=== PATIENT | female | born 1990 | race Caucasian/White ===

== ENCOUNTER 2018-01-04 22:09 | Inpatient (IN) | payer OTHER ==
[2018-01-04 22:50] VITALS: BMI 24.0
[2018-01-04 23:29] LABS: BASO % 0.3 % (0.0-2.0); EOS % 0.1 % (0.0-4.0); HEMOGLOBIN 11.8 g/dL (12.0-16.0); LYMPH % 7.5 % (20.0-40.0); MEAN CELL VOLUME 79.3 fl (81.0-99.0); MEAN CORPUSCULAR HEMOGLOBIN 26.4 pg (27.0-31.0); MEAN CORPUSCULAR HGB CONC 33.3 g/dL (33.0-37.0); MEAN PLATELET VOLUME 9.4 fl (7.2-11.7); MONO # 0.7 K/uL (0.0-0.8); NEUT # 11.6 K/uL (1.8-7.0); NEUT % 87.1 % (50.0-75.0); NRBC % 0.3 % (0.0-0.0); PLATELET COUNT 189 K/uL (130-400); RBC 4.47 Mil/uL (3.80-5.20); RED CELL DISTRIBUTION WIDTH 16.7 % (11.5-14.5); WHITE BLOOD COUNT 13.4 K/uL (4.8-10.8)
[2018-01-04] MEDS: Lactated Ringer's 1,000 ML IV SCH (23:32)
[2018-01-05] MEDS ORDERED: Fentanyl/Bupivacaine HCl 250 ML EPI ONE (00:35)
[2018-01-05] MEDS: Lactated Ringer's 1,000 ML IV SCH ×3 (00:35→06:00)
[2018-01-05] MEDS ORDERED: Bupivacaine HCl 0.25% PF (10 ml) Inj ONE (00:38)
[2018-01-05] MEDS ORDERED: Oxytocin 30 units/LR 500ML 30 U/500 ML BAG IV ONE ×2 (00:53→06:10)
[2018-01-05 03:14] LABS: BASOPHIL 1 % (0-2); LYMPHOCYTE 8 % (20-50); MONOCYTE 4 % (0-10); NEUTROPHIL 87 % (42-75); PLATELET ESTIMATE NORMAL (NORMAL); TOTAL CELLS COUNTED 100
--- NOTE | 2018-01-05 06:16 | OBHP ---
Datetime: 01/05/2018 05:58 FHR - Baseline A Provider: 150s Membranes, Provider: Bulging NICHD Variability Prov Fetus A: Moderate 6-25bpm NICHD Accel Fetus A IP Provider: 15X15 FHR Category Provider Fetus A: Category I NICHD Decel Fetus A IP Provider: None Dilatation, Provider: 8-9 Effacement, Provider: 100 Station, Provider: -1 Datetime: 01/04/2018 22:59 IP Adm Impression: Term, intrauterine IP Admit Plan: Admit to unit; Initiate labor protocol Admit Comment, IP Provider: 27 yo at 39.5 weeks GA, JD on 01/06/18 based on [address] [place], [place] [id number] U S, not c/w LMP presents to [facility] w/ c/o ctx q5 min since 4 pm this evening. Pt reports she went to [facility] this morning when her ctx was every 10 min, she was 2 cm dilated and was sent h ome. Pt reports ctx last for a min and it's more intense and strong. Pt reports passing thick mucus p lug, but denies LOF. +FM. Pt is GBS unknow. Pt has poor care. Last visit to [place] was on 10/2017. PNC: [place], last visit in 10/2017 PNL: No third trimester labs available. GBS unknown, rpr neg, hiv neg, rubella immune, hbsag unkno wn, 1hr GCT is 147, as per pt 3 hr GCT was WNL US: No record available, as per pt, she had last US at 27 weeks GA and it was normal. obhx: x 1 in 2006, full term, no complication, baby's wt: 5lbs 10 oz gynhx: pap neg, denies hx STI PMHX: Denies pshx: denies social hx: denies smoking cigarettes, drinking EtOH or using drugs. family hx: hx CAD in maternal grandfather medications: PNV Allergies: NKDA Assessment: 27 yo IUP@39.5 weeks GA has painful contraction. Plan: Admit to L_D Continunous heart tracing IVFs Hx poor prental care (last visit 10/2017) Labs: CBC, Type and screen, hiv, rpr, hebsag GBS uknown: offered GBS prophylaxis to patient, pt declines Pain management: pt desires epidural [place], pgy-1 Case d/w on-call OB Hospitalist Dr. Ramirez OB Hospitalist on-call. with PGY1, I saw ans examined this patient...Early labor with painful CTX - will admit and observe labor progress...discussed labor, pain management delivery and c are...check accucheck Extremities - PN: Normal Abdomen - PN: Normal Back - PN: Normal Lungs - PN: Normal Heart - PN: Normal Neurologic - PN: Normal HEENT - PN: Normal General - PN: Normal Contraction Comments Provider: q4min Comments, ACOG Physical Exam: Bedside US: cephalic presentation SVE: /-1 Pool Provider: Negative IP Hx Assessment: The History has been Reviewed and it's incomplete EGA AdmitDate IP: 39.5 Vital Signs Provider: Reviewed IP Chief Complaint: Uterine contractions; Maternal discomfort Genitourinary Exam: Normal
--- NOTE | 2018-01-05 06:16 | OBPN ---
Datetime: 01/05/2018 05:58 IP Progress Impression Other: slow progression Membranes, Provider: Bulging FHR - Baseline A Provider: 150s NICHD Accel Fetus A IP Provider: 15X15 FHR Category Provider Fetus A: Category I NICHD Variability Prov Fetus A: Moderate 6-25bpm Dilatation, Provider: 8-9 Effacement, Provider: 100 Station, Provider: -1 NICHD Decel Fetus A IP Provider: None Datetime: 01/05/2018 04:00 IP Progress Impression: Normal progression of labor IP Progress Plan: Continue present management; Anticipate Vaginal Delivery IP Progress Note Comment: SVE: /-2 OB hospitaliston-call...Pt rec'd epidural. She feels fine. Datetime: 01/04/2018 22:59 Pool Provider: Negative Contraction Comments Provider: q4min Vital Signs Provider: Reviewed
--- NOTE | 2018-01-05 06:34 | OBPN ---
Datetime: 01/05/2018 05:58 IP Progress Note Comment: SVE: /-1 Pt was 7-8 cm 2 hours ago, slowing progressing Will start Pitocin to augment the labor per protocol Membrance intact and bulging findings d/w patient and are in agreement with the plan. [place],pgy-1 Case d/w on-call OB Hospitalist Dr. Ramirez OB Hospitaliston-call agree with above note...start Pitocin augmentatoin
--- NOTE | 2018-01-05 07:42 | OBPN ---
Datetime: 01/05/2018 07:20 IP Progress Impression: Normal progression of labor; Reassuring heart rate IP Informed Consent Obtain: Vaginal Delivery; Risks, Benefits and Alternatives Discussed IP Procedures: Artificial ROM IP Progress Plan: Continue present management; Augmentation; Anticipate Vaginal Delivery Pool Provider: Positive Membranes, Provider: Ruptured Amniotic Fluid Color, Provider: Clear Contraction Comments Provider: 2-5m FHR - Baseline A Provider: 150 Presentation-Admit: Vertex IP Progress Note Comment: Since 6am, she was 9cm...Pitocin at 4miu/h (just increased 7am)...Discussi on with pt about augmentatoin...AROM clear fluid. NICHD Accel Fetus A IP Provider: 15X15 FHR Category Provider Fetus A: Category I NICHD Variability Prov Fetus A: Moderate 6-25bpm Dilatation, Provider: 9 Effacement, Provider: 100 Station, Provider: 0
[2018-01-05] MEDS ORDERED: Lidocaine 1% Inj (20ml) ONE (08:22)
[2018-01-05 09:37] VITALS: O2SAT 100
--- NOTE | 2018-01-05 12:35 | OBDS ---
DELIVERY PERSONNEL Delivery Doctor: Kenneth Kwong MD Lane Marker Installer: Vanesa Noel RN Anesthesiologist: Owen Shaw MD Resident: CAROLINA Tse MATERNAL INFORMATION Delivery Anesthesia: Epidural Medications in Delivery: Pitocin 30 mu/500 mL Estimated Blood Loss (ml): 150 Placenta Cultured: No Maternal Complications: None Provider Comments: Normal spontaneous vaginal delivery of live female infant, over intact perineum w ith epidural anesthesia. Babygirl was bulb suctioned and placed on mother's chest for skin skin stimu lation. Cord was clamped and cut. Spontaneous delivery of placenta and no laceration appreciated. EBL 150cc. 9/9. Patient was seen with the resident I agree with the note. I was present in the delivery and assite d the resident. LABOR SUMMARY EDC: 01/06/2018 00:00 No. Babies in Womb: 1 Attempted: No (Annotations: Data stored by [facility] on behalf of user) Labor Anesthesia: Epidural LABOR INFORMATION Reason for Induction: Not Applicable Onset of Labor: 01/05/2018 04:02 Complete Dilatation: 01/05/2018 08:15 Oxytocin: Augmentation Group B Beta Strep: Not Done Antibiotics # of Doses: 0 Antibiotics Time of Last Dose: n/a Steroids Given: None Reason Steroids Not Administered: Not Applicable MEMBRANES Membranes Rupture Method: Artificial Rupture of Membranes: 01/05/2018 07:15 Length of Rupture (hrs): 1.53 Amniotic Fluid Color: Clear Amniotic Fluid Amount: Moderate Amniotic Fluid Odor: None STAGES OF LABOR Stage 1 hrs: 4 Stage 1 min: 13 Stage 2 hrs: 0 Stage 2 min: 32 Stage 3 hrs: 0 Stage 3 min: 8 Total Time in Labor hrs: 4 Total Time in Labor min: 53 VAGINAL DELIVERY Episiotomy: None Laceration Extension: N/A Laceration Type: None Laceration Repair: Not Applicable Initial Vag Sponge Count: 5 Final Vag Sponge Count: 5 Initial Vag Sharps Count: 0 Final Vag Sharps Count: 0 Sponge Count Correct: Yes Sharps Count Correct: N/A BABY A INFORMATION Delivery Date/Time: 01/05/2018 08:47 Method of Delivery: Vaginal Born in Route : No : N/A Forceps: N/A Vacuum Extraction: N/A Shoulder Dystocia : No SHOULDER DYSTOCIA BABY A Delivery Date/Time: 01/05/2018 08:47 PRESENTATION/POSITION BABY A Presentation: Cephalic Cephalic Presentation: Vertex Breech Presentation: N/A PLACENTA INFORMATION BABY A Placenta Delivery Time : 01/05/2018 08:55 Placenta Method of Delivery: Spontaneous Placenta Status: Delivered SCORES BABY A Heart Rate 1 min: >100 bpm Resp Effort 1 min: Good Cry Reflex Irritability 1 min: Cough or Sneeze or Pulls Away Muscle Tone 1 min: Active Motion Color 1 min: Body [place], Extremities Blue Resuscitation Effort 1 min: N/A SCORE 1 MIN: 9 Heart Rate 5 min: >100 bpm Resp Effort 5 min: Good Cry Reflex Irritability 5 min: Cough or Sneeze or Pulls Away Muscle Tone 5 min: Active Motion Color 5 min: Body [place], Extremities Blue Resuscitation Effort 5 min: N/A SCORE 5 MIN: 9 INFORMATION BABY A Gestational Age at Delivery: 39.6 Gestational Status: Term Infant Outcome : Liveborn Condition : Stable Sex: Female IDENTIFICATION/MEDS BABY A ID Band Number: [id number] WEIGHT/LENGTH BABY A Birthweight (gms): 2895 Weight (lb): 6 Infant Weight (oz): 6 CORD INFORMATION BABY A No. Cord Vessels: 3 Nuchal Cord : N/A Cord Blood Taken: Yes Infant Suction: Mouth; Nose
[2018-01-06 07:17] LABS: HEMOGLOBIN 11.1 g/dL (12.0-16.0); MEAN CELL VOLUME 79.5 fl (81.0-99.0); MEAN CORPUSCULAR HEMOGLOBIN 27.2 pg (27.0-31.0); MEAN CORPUSCULAR HGB CONC 34.2 g/dL (33.0-37.0); RBC 4.08 Mil/uL (3.80-5.20); RED CELL DISTRIBUTION WIDTH 17.2 % (11.5-14.5); WHITE BLOOD COUNT 15.3 K/uL (4.8-10.8)
--- NOTE | 2018-01-06 08:25 | OBPPN ---
Datetime: 01/06/2018 06:24 PP Pain Prov: Within normal limits PP Nausea Prov: Denies PP Flatus Prov: Yes PP BM Prov: Yes PP Heart Prov: Normal PP Lungs Prov: Normal PP Abdomen/Uterus Prov: Normal PP Lochia Prov: Normal PP CVA Tenderness Prov: Normal PP Impression Prov: Normal progression PP Plan Prov: Continue present management PP Progress Note Prov: PPD 1 27 y/o female now on PPD 1 seen and examined at bedside this morning. No overnight events. Reports pain is controlled with pain medications. Pt reports she had BM last night and voiding freel y w/o blood noted. Ambulating well w/o dizziness. Lochia is similar to menses volume. Pt is breastfee ding the baby w/o difficulty. Denies nausea, vomiting, fever, chills, chest pain, dyspnea. Pt reports B/L lower extermity swelling for 2 weeks. Denies any calf pain or pain with ambulation. Physical Exam: General: A_O, resting comfortably in bed, NAD HEENT: oral mucosa moist. Lungs: CTA B/L, no wheezing, rhonchi or rales CVS: RRR, S1, S2 ABD: ND, +BS, firm fundus @ umbilical level. Soft, appropriate TTP. EXT: 1+ b/l pedal edema, +pedal pulse. No calf tenderness. Negative Luiz's sign. No erythema over the lower extermity. Neuro/psych: AAOX3. Assessment: 27 y/o female now doing well on PPD 1 Pedal edema Plan: OOB w/ caution Regular diet Ibuprofen for pain management Senokot and colace for constipation consults for Encourage and ambulation Advised to keep legs elevated when resting to decrease pedal edema. Anticipate discharge tomorrow [place], pgy-1 Case d/w on-call OB hospitalist OB Hospitalist Addendum: PPD 1 s/p , doing well, bottle feeding Continue currrent care Vital Signs Provider PP: Reviewed
[2018-01-07 16:51] VITALS: BP 116/63; PULSE 86; RESP 20; TEMP 97.6
== END 2018-01-07 12:00 | disposition home or self-care (01) | DRG 372 ==
LOC: H.EROB2 22:09 → H.L&D 23:02 → H.OB/GYN 01-05 12:38
PROVIDERS: ADMIT Obstetrics & Gynecology; ATTEND Obstetrics & Gynecology
PROC: 10E0XZZ Delivery of Products of Conception, External Approach (ICD-10-PCS; principal; 2018-01-04)
PROC: 4A0HXCZ Measurement of Products of Conception, Cardiac Rate, External Approach (ICD-10-PCS; 2018-01-04)
DX: O12.04 Gestational edema, complicating childbirth (principal); T17.890A Other foreign object in other parts of respiratory tract causing asphyxiation, initial encounter; Z37.0 Single live birth; Z3A.39 39 weeks gestation of pregnancy; Z82.49 Family history of ischemic heart disease and other diseases of the circulatory system; O9A.22 Injury, poisoning and certain other consequences of external causes complicating childbirth

== ENCOUNTER 2018-11-20 11:32 | Inpatient (IN) | payer MEDICAID, OTHER ==
[2018-11-20 11:55] VITALS: BMI 22.3
[2018-11-20] MEDS ORDERED: ceFAZolin 2 GM in Sodium Chloride 0.9% 100 ML IVPB ONE (12:06)
[2018-11-20] MEDS ORDERED: Lactated Ringer's 1,000 ML IV ONE (12:06)
[2018-11-20] MEDS ORDERED: Oxytocin 30 UNIT 30 UNITS/500 ML BAG IV ONE (12:07)
[2018-11-20] MEDS ORDERED: OXYTOCIN/0.9 % NS 20 UNIT/1,000 ML BAG IV ONE (12:08)
[2018-11-20] MEDS ORDERED: Lactated Ringer's 1,000 ML IV SCH ×3 (12:15→16:47)
[2018-11-20] MEDS ORDERED: Azithromycin 500 MG in Sodium Chloride 0.9% 250 ML IVPB STA (12:22)
[2018-11-20] MEDS ORDERED: Erythromycin 0.5% Ophth Oint 1 APPLIC/3.5 G ONE (12:25)
[2018-11-20 12:26] LABS: BASO # 0.1 K/uL (0.0-0.2); BASO % 0.7 % (0.0-2.0); EOS # 0.2 K/uL (0.0-0.7); EOS % 1.6 % (0.0-4.0); HEMOGLOBIN 10.9 g/dL (12.0-16.0); LYMPH % 17.7 % (20.0-40.0); MEAN CELL VOLUME 74.8 fl (81.0-99.0); MEAN CORPUSCULAR HEMOGLOBIN 24.4 pg (27.0-31.0); MEAN CORPUSCULAR HGB CONC 32.6 g/dL (33.0-37.0); MEAN PLATELET VOLUME 8.6 fl (7.2-11.7); MONO # 0.8 K/uL (0.0-0.8); MONO % 7.6 % (0.0-10.0); NEUT % 72.4 % (50.0-75.0); NRBC % 0.1 % (0.0-0.0); RBC 4.45 Mil/uL (3.80-5.20); RED CELL DISTRIBUTION WIDTH 18.3 % (11.5-14.5)
[2018-11-20] MEDS ORDERED: Morphine 1 mg/ml preservative-free Inj(Duramorph) ONE (12:34)
[2018-11-20] MEDS ORDERED: ePHEDrine 50 mg/ml Inj ONE (12:35)
[2018-11-20] MEDS ORDERED: Phenylephrine 10 mg/ml Inj ONE (12:36)
[2018-11-20 13:18] VITALS: O2SAT 99
[2018-11-20] MEDS ORDERED: Oxycodone/Acetaminophen 5/325 mg Tab PO PRN (13:35)
--- NOTE | 2018-11-20 13:55 | OBDS ---
MATERNAL INFORMATION Provider Comments: Surgeon: Dr. Hartmann Child Adolescent Psychiatrist: Dr. Wolf Pre-op Dx: Term no care, ROM, Breech presentation with advanced dilation Surgery: LTCS Post-op Dx: Same Findings: Live male , misa breech presentation, clear fluid, grossly nml tubes, ovaries, pl acenta, uterus, 5lbs 5 oz, 9/9 Anesthesia: Spinal by Dr. Heart EBL: 600mL UO: Total Input: Complications: None Condition: Stable Pathology: Cord blood, Placenta STAGES OF LABOR Stage 3 hrs: 0 Stage 3 min: 1 BABY A INFORMATION Infant Delivery Date/Time: 11/20/2018 12:54 Method of Delivery: Born in Route : No : N/A SHOULDER DYSTOCIA BABY A Infant Delivery Date/Time: 11/20/2018 12:54 PRESENTATION/POSITION BABY A Presentation: Breech Breech Presentation: Misa PLACENTA INFORMATION BABY A Placenta Delivery Time : 11/20/2018 12:55 Placenta Method of Delivery: Expressed Placenta Status: Delivered SCORES BABY A Heart Rate 1 min: >100 bpm Resp Effort 1 min: Good Cry Reflex Irritability 1 min: Cough or Sneeze or Pulls Away Muscle Tone 1 min: Active Motion Color 1 min: Body [place], Extremities Blue SCORE 1 MIN: 9 Heart Rate 5 min: >100 bpm Resp Effort 5 min: Good Cry Reflex Irritability 5 min: Cough or Sneeze or Pulls Away Muscle Tone 5 min: Active Motion Color 5 min: Body [place], Extremities Blue SCORE 5 MIN: 9 INFORMATION BABY A Gestational Age at Delivery: 38.0 Gestational Status: Term Outcome : Liveborn Infant Condition : Stable Infant Sex: Male WEIGHT/LENGTH BABY A Birthweight (gms): 2548 Weight (lb): 5 Weight (oz): 10 CORD INFORMATION BABY A No. Cord Vessels: 3 Nuchal Cord : N/A Cord Blood Taken: Yes Infant Suction: Mouth
--- NOTE | 2018-11-20 14:18 | OBADHP ---
Datetime: 11/20/2018 13:43 Admit Comment, IP Provider: 28 y/o @ approx. 38 weeks gestation with LMP of 02/2018 no care presented complaining of gush of fluid loss yesterday afternoon at about 1pm followed by continu ed trickling of fluid. She also reported small amount of spotting with bright red blood yesterday aft ernoon along with some contractions that started at 12am this morning, every 45 minutes, -05/03 in na ture that have increased in frequency to every 10 minutes. + FM; last sexual activity was . S he denied any f/c/n/v/d/cp or sob. OBGYNhx: x 2 (11 years ago, F, 5.2lbs; 10 months ago, F, 6.3 lbs) no complications PMH: denies Family hx: denies Sochx: denies tobacco, EtOH or elicit drug use Allergies: denies Meds: prenatals ROS: all 12 points reviewed and are negative. VS: wnl Gen: awake, alert female breathing comfortably Cardio: s1s2, RRR Resp: cta b/l Abd: soft, nontender, BS+ Pelvic: sterile speculum exam- 6cm dilated, breech position (confirmed by ultrasound) Ext: calves nontender, nonedematous A/P: 28 y/o @ approx. 38 weeks gestation with LMP of 02/2018 _ care. -6cm dilated with breech position therefore protocol initiated. -FHR confirmed @ 137 bpm. - labs drawn. -Continue to monitor vital. Patient seen and examined with Dr. Hartmann -Kiya Tolentino, PGY-[address] Hartmann: I have evaluated the patient independently and I agree with the above. Extremities - PN: Normal Abdomen - PN: Normal Lungs - PN: Normal Heart - PN: Normal General - PN: Normal FHR - Baseline A Provider: 160 Pool Provider: Positive Vital Signs Provider: Reviewed; Within Normal Limits IP Chief Complaint: Uterine contractions; Suspected ruptured membranes; Vaginal bleeding NICHD Variability Prov Fetus A: Moderate 6-25bpm NICHD Accel Fetus A IP Provider: 15X15 FHR Category Provider Fetus A: Category I NICHD Decel Fetus A IP Provider: None Dilatation, Provider: 6 EGA AdmitDate IP: 38.0 IP Adm Impression: Term, intrauterine IP Admit Plan: Admit to unit; Initiate Section protocol
[2018-11-20] MEDS ORDERED: DiphenhydrAMINE 50 mg/ml Inj IVP PRN ×2 (14:54→16:47)
[2018-11-20 16:43] LABS: BARBITURATES, UR NEGATIVE (NEGATIVE); BENZODIAZEPINES, UR NEGATIVE (NEGATIVE); OPIATES, UR NEGATIVE (NEGATIVE); PHENCYCLIDINE, UR NEGATIVE (NEGATIVE)
--- NOTE | 2018-11-21 02:26 | OP ---
PROCEDURE DATE: 11/20/2018 PREOPERATIVE DIAGNOSES: 1. Term with no care. 2. Confirmed rupture of membranes. 3. A 6 cm dilated, in active labor. 4. Misa breech presentation confirmed by ultrasound. POSTOPERATIVE DIAGNOSES: 1. Term with no care. 2. Confirmed rupture of membranes. 3. A 6 cm dilated, in active labor. 4. Misa breech presentation confirmed by ultrasound. PROCEDURE: Low-transverse section. SURGEON: Mary Ann Hartmann MD SOCIAL SCIENCES INSTRUCTOR: Dr. Kusum Wolf TYPE OF ANESTHESIA: Spinal. ANESTHESIOLOGIST: Kalpesh Heart MD FINDINGS: Live male infant, 5 pounds 10 ounces. Misa breech presentation. Clear fluid. Grossly normal tubes, ovaries, placenta, and uterus. TOTAL FLUID INPUT: 1500 mL. ESTIMATED BLOOD LOSS: 600 mL. URINE OUTPUT: 50 mL. COMPLICATIONS: None. CONDITION: Stable. PATHOLOGY SPECIMEN: Placenta and cord blood. INDICATION: This is a 28-year-old G4, P2-0-0-2 at roughly 38 plus weeks gestation based on LMP. The patient presented to labor and delivery reporting that she had bleeding and leaking since yesterday and had no care in the . On exam, the patient was confirmed to be grossly ruptured, 6 cm dilated and in active labor. Ultrasound presentation confirmed the patient was misa breech presentation. The patient was urgently admitted to labor and delivery, IV was started, type and cross, CBC, and consented for emergent secondary to malpresentation of the . The patient was advised of the risks and benefits of procedure including risk of bleeding, infection, damage to surrounding organs such as bowel, bladder, ureter, and uterus. The patient verbalized understanding and signed informed consent. DESCRIPTION OF PROCEDURE: The patient was taken to OR. Ancef was given preoperatively as well as azithromycin. IV fluids were running. The patient was given spinal anesthesia without difficulty. The patient prepped and draped in normal sterile fashion, dorsal supine position with a leftward tilt. Pfannenstiel skin incision was made with a scalpel, carried through to the underlying layer of fascia with the scalpel and the Bovie. Fascia incised in the midline and the incision extended laterally with the Bovie. Delisa clamps were used to tent up the inferior aspect of this incision which we dissected off of the underlying pyramidalis muscles with Bovie. In a similar fashion, we tented up the superior aspect of this incision which we dissected off of the underlying rectus abdominis muscles with Bovie. The muscles were bluntly at the midline. We extended the incision superiorly and fairly good visualization of all underlying organs. Peritoneal cavity was entered. The lower uterine segment was visualized and the vesicouterine peritoneum was identified, grabbed with pickups, and a bladder flap was created with the Metzenbaum scissors. Lower uterine segment was incised in a transverse fashion with the scalpel. Uterine cavity was entered. Infant was delivered in misa presentation atraumatically followed by body and head atraumatically. Mouth and nose were suctioned. Cord clamped and cut. Infant was handed off to awaiting pediatric team. Cord blood was obtained. Placenta was extracted manually. Uterus exteriorized, cleared of all clots. Uterine incision was repaired with an 0 Vicryl stitch and second imbricating layer was done with 0 Monocryl stitch. The hysterotomy site appeared to be hemostatic. Uterus was returned to the abdomen. Gutters were cleared of all clots. Again, the hysterotomy site was inspected and found to be hemostatic. Peritoneum was closed with 2-0 Monocryl and muscles were imbricated with the same stitch. Muscle was inspected, found to be hemostatic. Fascia was closed with an 0 Vicryl stitch. Subcutaneous fat was reapproximated with plain gut suture. Skin was closed with 3-0 Monocryl. Sponge, lap and needle counts were correct x4. The patient was taken to the recovery room in stable condition. No other complications. Mary Ann Hartmann MD
[2018-11-21 06:54] LABS: HEMOGLOBIN 8.6 g/dL (12.0-16.0); MEAN CELL VOLUME 73.7 fl (81.0-99.0); MEAN CORPUSCULAR HEMOGLOBIN 24.2 pg (27.0-31.0); MEAN CORPUSCULAR HGB CONC 32.9 g/dL (33.0-37.0); RBC 3.56 Mil/uL (3.80-5.20); RED CELL DISTRIBUTION WIDTH 18.2 % (11.5-14.5); WHITE BLOOD COUNT 14.3 K/uL (4.8-10.8)
[2018-11-21] MEDS ORDERED: Multivitamin With Minerals Tab PO SCH (09:00)
[2018-11-21] MEDS: Multivitamin With Minerals Tab PO SCH (09:05)
[2018-11-21] MEDS: Oxycodone/Acetaminophen 5/325 mg Tab PO PRN (19:41)
[2018-11-22] MEDS: Oxycodone/Acetaminophen 5/325 mg Tab PO PRN ×2 (00:24→22:43)
[2018-11-22] MEDS: guaiFENesin DM 100 mg-10 mg/5 ml UD PO PRN ×2 (01:26→06:11)
--- NOTE | 2018-11-22 09:36 | OBPPN ---
Datetime: 11/22/2018 06:38 PP Pain Prov: Within normal limits PP Nausea Prov: Denies PP Flatus Prov: Yes PP BM Prov: No PP Breasts Prov: Not Done PP Heart Prov: Normal PP Lungs Prov: Normal PP Abdomen/Uterus Prov: Normal PP Lochia Prov: Not Done PP Vulva/Perineum Prov: Not Done PP CVA Tenderness Prov: Normal PP Extremities Prov: Normal PP C/S Incision Prov: Normal PP Progress Prov: Normal PP Impression Prov: Normal progression PP Plan Prov: Continue present management PP Progress Note Prov: 28 y/o on POD2, s/p Pt was seen and examined this AM. No complaints at this time. Pain well controlled with pain medic ations. Ambulating, tolerating PO, no breast-feeding difficulties. Passing flatus but no BM yet. Fole y D/C, Dressing removed. VSS GEN: Laying upright in bed, breast feeding Cardio: S1S2, RRR Lungs: cta b/l Abdomen: soft, nontender, BS+, appropriate tenderness to palpation; fundus @ level of umbilibus. u mbilicus. EXT: Non-edematous, calves non-tender to palpation Assessment/Plan: 28 y/o , POD2, s/p due to breech presentation - HBsAg, HIV, RPR, rubella unremarkable - Tdap and Flu vaccine to be given today - Social work consulted as patient did not receive any care - Percocet and Ibuprofen for pain - Ambulation encouraged. - Continue to encourage . - Anticipated discharge 11/23/2018 Case discussed with attending --- Edd Carter MD PGY-[address] Hartmann: I have evalauted the patient independently and I agree with the above Vital Signs Provider PP: Reviewed; Within Normal Limits
[2018-11-22] MEDS: Multivitamin With Minerals Tab PO SCH (09:58)
[2018-11-22] MEDS ORDERED: Influenza Vaccine (5 YR UP)/PF 60 MCG/0.5 ML SYR IM ONE (10:00)
[2018-11-22] MEDS ORDERED: Tdap Vaccine 0.5 ml Vial (10-64 yrs) IM ONE (10:00)
[2018-11-22] MEDS ORDERED: Pneumococcal 23-Valent Vaccine IM ONE (10:00)
[2018-11-22] MEDS ORDERED: Influenza Vaccine 60 mcg/0.5 mL SYR (4YR UP) IM ONE (10:15)
[2018-11-23] MEDS: Oxycodone/Acetaminophen 5/325 mg Tab PO PRN (05:10)
[2018-11-23] MEDS: Multivitamin With Minerals Tab PO SCH (08:50)
--- NOTE | 2018-11-23 17:15 | OBPPN ---
Datetime: 11/23/2018 06:56 PP Pain Prov: Within normal limits PP Nausea Prov: Denies PP Flatus Prov: Yes PP BM Prov: Yes PP Breasts Prov: Not Done PP Heart Prov: Normal PP Lungs Prov: Normal PP Abdomen/Uterus Prov: Normal PP Lochia Prov: Not Done PP Vulva/Perineum Prov: Not Done PP CVA Tenderness Prov: Normal PP Extremities Prov: Normal PP C/S Incision Prov: Normal PP Progress Prov: Normal PP Impression Prov: Normal progression PP Plan Prov: Continue present management PP Progress Note Prov: 28 y/o , POD3, s/p . Pt was seen and examined this AM. No complaints at this time. Pain well controlled with pain medic ations. Ambulating, tolerating PO, no breast-feeding difficulties. Passing flatus and had BM yesterda y. Luna D/C, Dressing removed. VSS GEN: Laying upright in bed, breast feeding Cardio: S1S2, RRR Lungs: cta b/l Abdomen: soft, nontender, BS+, appropriate tenderness to palpation; fundus @ level of umbilicus. EXT: Non-edematous, calves non-tender to palpation Assessment/Plan: 28 y/o , POD3, s/p due to breech presentation - HBsAg, HIV, RPR, rubella unremarkable - Received Tdap and Flu vaccine on 11/22/18 - Social work consulted as patient did not receive any care - Percocet and Ibuprofen for pain - Ambulation encouraged. - Continue to encourage . - Anticipated discharge today 11/23/2018 Case discussed with attending --- Edd Carter MD PGY-1 The patient was seen with the resident I agree with the note Vital Signs Provider PP: Reviewed; Within Normal Limits
--- NOTE | 2018-11-23 17:15 | OBDCSUM ---
Datetime: 11/23/2018 06:58 Discharged to, Provider: Home Follow up at, Provider: 1-2 weeks Disch Instr Activity: Normal activity; May Shower Disch Instr Diet: Regular Discharge Instructions, Provider: Routine instructions given Discharge Diagnosis, Provider: Term Delivered Discharge Time: 11/23/2018 12:20 Follow up in weeks, Provider: Emiliano Finch Disch Referrals: None Contraception discussed, Prov: Yes Disch Activity Restrictions: No exercising; No lifting; No sexual activity; Nothing in vagina - Inte rcourse, tampons, douche Discharge Comment, Provider: Discharge Summary DOA: 11/23/2018 EGA: 38 wks Diagnosis: S/P Primary C- section due to breech position Summary of : 28y/o , 38.0 wks S/P Primary C- section due to breech position L_D summary: Pt is s/p C- section. Pain was well controlled with pain meds. No nausea. Tolerated r egular diet well. Passing flatus, voiding well w/o difficulties. Breast feeding without difficulty. L ochia is similar to menses volume. DOL: 11/20/18 at 12:54 NB: Male : [birth year] Weight: 2548 gm Lochia= menses, mild pain, controlled with medications Blood type: O +, Antibody Neg CBC pp: 8.6/26.3 Discharge Date: 11/23/2018 Time 10:00 AM Discharge Instructions: -Encourage -Encourage ambulation -Ibuprofen for mild-moderate pain and Percocet for severe pain PRN -Iron for anemia -Continue vitamins at home - ED precautions: If excessive bleeding, pain that does not get relief, fever >100.4, palpitations , SOB, CP or other concerning symptom go to the ED. - PT was urged if feeling sad, mood swing, depression, neglect of baby, suicidal thoughts, homicid al thoughts go to ER or call 911 for help - Pt should go to her Primary care doctor if have difficulty with breast feeding - F/U at [facility] in 1 week for wound check and 4-6 wks for checkup. -- Edd Carter MD, PGY-1 Addendum @ 11:00 - patient seen and examined by me. I agree with the resident's assessment and ladarius n except for any corrections made below. 28 year old G3 now P3 day #3 after primary for breech presentation, no care. To lerating PO, pain controlled, no fever/chills. Discussed importance of contraception post give n intrapartum interval of only 10 months. Especially discussed the risk of a short intrapartum period after a and this risk of placental abnormalities. Patient has only used condoms in the pas t. Briefly educated on LARCs as an option. All questions answered. Patient discharged in stable condi tion. Starla Wolf MD OB Fellow The patient was ssen with the fellow and I agree with the note Contraception after Delivery: Undecided
[2018-11-23 18:14] VITALS: BP 122/75; PULSE 85; RESP 20; TEMP 98.5
== END 2018-11-23 12:23 | disposition home or self-care (01) | DRG 540 ==
LOC: H.EROB2 11:32 → H.EROB 11:52 → H.L&D 12:02 → H.EROB2 12:09 → H.OB/GYN 19:27
PROVIDERS: ADMIT Obstetrics & Gynecology; ATTEND Obstetrics & Gynecology
PROC: 10D00Z1 Extraction of Products of Conception, Low, Open Approach (ICD-10-PCS; principal; 2018-11-20)
PROC: 4A1HXCZ Monitoring of Products of Conception, Cardiac Rate, External Approach (ICD-10-PCS; 2018-11-20)
PROC: 3E02340 Introduction of Influenza Vaccine into Muscle, Percutaneous Approach (ICD-10-PCS; 2018-11-22)
PROC: 3E0234Z Introduction of Serum, Toxoid and Vaccine into Muscle, Percutaneous Approach (ICD-10-PCS; 2018-11-22)
DX: O32.1XX0 Maternal care for breech presentation, not applicable or unspecified (principal); Z23 Encounter for immunization; O09.33 Supervision of pregnancy with insufficient antenatal care, third trimester; Z37.0 Single live birth; Z3A.38 38 weeks gestation of pregnancy